=== PATIENT | female | born 1950 | race Caucasian/White ===

== ENCOUNTER → 2020-04-02 | Outpatient (CLI) | payer MEDICARE, OTHER ==
[2020-04-02 14:26] LABS: BASOPHILS ABSOLUTE AUTO 0.03 K/mm3 (0.00-0.23); BASOPHILS PERCENT AUTO 1 % (0-2); EOSINOPHILS PERCENT AUTO 2 % (0-6); Hematocrit 46.5 % (33.0-51.0); Hemoglobin 15.3 g/dL (11.5-16.0); IMMATURE GRAN ABSOLUTE AUTO 0.01 K/mm3 (0.00-0.10); IMMATURE GRAN PERCENT AUTO 0 % (0-1); LYMPHOCYTES ABSOLUTE AUTO 1.39 K/mm3 (0.84-5.20); LYMPHOCYTES PERCENT AUTO 28 % (21-46); MONOCYTES ABSOLUTE AUTO 0.32 K/mm3 (0.16-1.47); MONOCYTES PERCENT AUTO 7 % (4-13); Mean Corpuscular HGB 28.1 pg (26.0-34.0); Mean Corpuscular HGB Conc 32.9 g/dL (31.5-36.5); Mean Corpuscular Volume 85 fL (80-100); Mean Platelet Volume 10.6 fL (9.1-12.4); NEUTROPHILS ABSOLUTE AUTO 3.07 K/mm3 (1.96-9.15); NEUTROPHILS PERCENT AUTO 62 % (41-73); Platelet Count 191 K/mm3 (150-400); RDW Coefficient Variation 13.7 % (11.7-14.2); RDW Standard Deviation 42.4 fL (35.1-46.3); Red Blood Cell Count 5.45 M/mm3 (3.80-5.20); White Blood Cell Count 4.92 K/mm3 (4.00-11.30)
[2020-04-02 14:52] LABS: Alanine Aminotransfer (ALT/SGP 22 U/L (12-78); Albumin, Blood 4.1 g/dL (3.4-5.0); Albumin/Globulin Ratio 1.1 (0.8-1.8); Alk Phos 97 U/L (40-126); Anion Gap 10 mmol/L (6-16); Aspartate Aminotrans (AST/SGOT 18 U/L (12-37); Bilirubin, Total 0.5 mg/dL (0.1-1.0); Blood Urea Nitrogen 11 mg/dL (8-24); Bun/Creatinine Ratio 14.9 (12.0-20.0); CO2, Blood 27 mmol/L (21-32); Calcium, Blood 9.2 mg/dL (8.5-10.1); Chloride, Blood 104 mmol/L (98-108); Creatinine, Blood 0.74 mg/dL (0.40-1.00); Globulin, Blood 3.8 g/dL (2.2-4.0); Glomerular Filtration Rate >60 (60-); Glucose, Blood 113 mg/dL (70-99); Potassium, Blood 3.9 mmol/L (3.5-5.5); Sodium, Blood 141 mmol/L (136-145); Thyroid Stimulating Hormone 1.163 uIU/mL (0.360-4.800); Total Protein, Blood 7.9 g/dL (6.4-8.2)
== END ==
LOC: LAB SHORT 14:22 → LAB EV 14:22
PROVIDERS: Physician Assistant
DX: R60.0 Localized edema (principal); R53.83 Other fatigue
CPT/HCPCS: 80053; 83880; 84443; 85025; 85379

== ENCOUNTER → 2021-03-26 | Outpatient (CLI) | payer MEDICARE, OTHER ==
[~2021-03-26] MED LIST: Protonix40 MG PO
== END ==
LOC: LAB EV 15:58 → LAB SHORT 15:58
DX: R35.0 Frequency of micturition (principal)
CPT/HCPCS: 87077; 87086; 87186

== ENCOUNTER → 2021-04-03 | Outpatient (CLI) | payer MEDICARE, OTHER | END | disposition home or self-care (01) | LOC: LAB SHORT 15:33 → LAB EV 15:33 | DX: N39.0 Urinary tract infection, site not specified (principal) | CPT/HCPCS: 87086 ==

== ENCOUNTER 2021-04-13 15:38 | Emergency (ER) | payer MEDICARE, OTHER ==
[~2021-04-13] VITALS: Ht 165.1 cm; Wt 77.1 kg
[2021-04-13 16:18] LABS: BASOPHILS ABSOLUTE AUTO 0.04 K/mm3 (0.00-0.23); BASOPHILS PERCENT AUTO 0 % (0-2); EOSINOPHILS ABSOLUTE AUTO 0.19 K/mm3 (0.00-0.68); EOSINOPHILS PERCENT AUTO 2 % (0-6); Hemoglobin 15.3 g/dL (11.5-16.0); IMMATURE GRAN ABSOLUTE AUTO 0.04 K/mm3 (0.00-0.10); IMMATURE GRAN PERCENT AUTO 0 % (0-1); LYMPHOCYTES ABSOLUTE AUTO 0.96 K/mm3 (0.84-5.20); LYMPHOCYTES PERCENT AUTO 8 % (21-46); MONOCYTES ABSOLUTE AUTO 0.47 K/mm3 (0.16-1.47); MONOCYTES PERCENT AUTO 4 % (4-13); Mean Corpuscular HGB 28.1 pg (26.0-34.0); Mean Corpuscular HGB Conc 32.6 g/dL (31.5-36.5); Mean Corpuscular Volume 86 fL (80-100); Mean Platelet Volume 10.9 fL (9.1-12.4); NEUTROPHILS ABSOLUTE AUTO 9.82 K/mm3 (1.96-9.15); NEUTROPHILS PERCENT AUTO 85 % (41-73); Platelet Count 195 K/mm3 (150-400); RDW Coefficient Variation 13.2 % (11.7-14.2); RDW Standard Deviation 41.4 fL (35.1-46.3); Red Blood Cell Count 5.45 M/mm3 (3.80-5.20); White Blood Cell Count 11.52 K/mm3 (4.00-11.30)
[2021-04-13 16:53] LABS: Alanine Aminotransfer (ALT/SGP 26 U/L (12-78); Albumin, Blood 3.9 g/dL (3.4-5.0); Albumin/Globulin Ratio 1.1 (0.8-1.8); Alk Phos 98 U/L (50-136); Anion Gap 6 mmol/L (6-16); Aspartate Aminotrans (AST/SGOT 19 U/L (12-37); Bilirubin, Total 0.7 mg/dL (0.1-1.0); Blood Urea Nitrogen 11 mg/dL (8-24); Bun/Creatinine Ratio 15.4 (12.0-20.0); CO2, Blood 24 mmol/L (21-32); Calcium, Blood 9.3 mg/dL (8.5-10.1); Chloride, Blood 107 mmol/L (98-108); Creatinine, Blood 0.72 mg/dL (0.40-1.00); Globulin, Blood 3.6 g/dL (2.2-4.0); Glomerular Filtration Rate >60 (60-); Glucose, Blood 147 mg/dL (70-99); Potassium, Blood 3.8 mmol/L (3.5-5.5); Sodium, Blood 137 mmol/L (136-145); Total Protein, Blood 7.5 g/dL (6.4-8.2); Troponin I <0.015 ng/mL (0.000-0.040)
[2021-04-13] MEDS ORDERED: Protonix40 MG PO (19:21)
== END 2021-04-13 19:40 | disposition home or self-care (01) ==
LOC: ER 15:38
PROVIDERS: Physician Assistant
DX: K20.90 Esophagitis, unspecified without bleeding (principal); I10 Essential (primary) hypertension; Z88.2 Allergy status to sulfonamides; Z88.0 Allergy status to penicillin
CPT/HCPCS: 36415; 71046; 71275; 80053; 84484; 85025; 93005; 93010; 99284-25; Q9967

== ENCOUNTER 2021-06-10 05:57 | Inpatient (IN) | payer MEDICARE, OTHER ==
[~2021-06-10] VITALS: Ht 165.1 cm; Wt 77.1 kg
[2021-06-10 06:51] LABS: BASOPHILS ABSOLUTE AUTO 0.04 K/mm3 (0.00-0.23); BASOPHILS PERCENT AUTO 1 % (0-2); EOSINOPHILS ABSOLUTE AUTO 0.28 K/mm3 (0.00-0.68); EOSINOPHILS PERCENT AUTO 4 % (0-6); Hemoglobin 14.6 g/dL (11.5-16.0); IMMATURE GRAN ABSOLUTE AUTO 0.01 K/mm3 (0.00-0.10); IMMATURE GRAN PERCENT AUTO 0 % (0-1); LYMPHOCYTES ABSOLUTE AUTO 1.98 K/mm3 (0.84-5.20); LYMPHOCYTES PERCENT AUTO 27 % (21-46); MONOCYTES ABSOLUTE AUTO 0.41 K/mm3 (0.16-1.47); MONOCYTES PERCENT AUTO 6 % (4-13); Mean Corpuscular HGB 27.9 pg (26.0-34.0); Mean Corpuscular HGB Conc 32.4 g/dL (31.5-36.5); Mean Corpuscular Volume 86 fL (80-100); NEUTROPHILS ABSOLUTE AUTO 4.59 K/mm3 (1.96-9.15); NEUTROPHILS PERCENT AUTO 63 % (41-73); Platelet Count 180 K/mm3 (150-400); RDW Coefficient Variation 13.1 % (11.7-14.2); Red Blood Cell Count 5.24 M/mm3 (3.80-5.20); White Blood Cell Count 7.31 K/mm3 (4.00-11.30)
[2021-06-10 07:08] LABS: Alanine Aminotransfer (ALT/SGP 25 U/L (12-78); Albumin, Blood 3.7 g/dL (3.4-5.0); Albumin/Globulin Ratio 1.1 (0.8-1.8); Alk Phos 93 U/L (50-136); Anion Gap 8 mmol/L (6-16); Aspartate Aminotrans (AST/SGOT 19 U/L (12-37); Bilirubin, Total 0.6 mg/dL (0.1-1.0); Blood Urea Nitrogen 9 mg/dL (8-24); Bun/Creatinine Ratio 16.1 (12.0-20.0); CO2, Blood 23 mmol/L (21-32); Calcium, Blood 8.7 mg/dL (8.5-10.1); Chloride, Blood 109 mmol/L (98-108); Creatinine, Blood 0.56 mg/dL (0.40-1.00); Globulin, Blood 3.4 g/dL (2.2-4.0); Glomerular Filtration Rate >60 (60-); Glucose, Blood 180 mg/dL (70-99); Potassium, Blood 3.7 mmol/L (3.5-5.5); Sodium, Blood 140 mmol/L (136-145); Total Protein, Blood 7.1 g/dL (6.4-8.2)
[2021-06-10 08:58] LABS: SARS-Cov-2 (COVID-19) PCR, MMC NEGATIVE (NEGATIVE)
--- NOTE | 2021-06-10 19:07 | NUR ---
SHIFT SUMMARY NEW ADMIT TO UNIT FROM ER WITH RIGHT FEMUR FRACTURE. ALERT AND ORIENTED. RIGHT LEG BENT AT KNEE AND EXTERNALLY ROTATED. PAINFUL WITH MOVEMENT. PATIENT HAS BEEN RESTING IN BED ALL AFTERNOON AND DECLINES REPOSITIONING. DECLINES PAIN MEDS AT THIS TIME. NPO AFTER MIDNIGHT FOR PLANNED SURGICAL REPAIR TOMORROW 06/11/[address] MELGAR. IF FLUIDS RUNNING. COSTELLO IN PLACE. REPORT GIVEN TO NO EXPERIENCE RN.
--- NOTE | 2021-06-11 03:15 | NUR ---
SHIFT SUMMARY PT AOX4. ADMITTED FOR R FEMUR FX. RLE IS EXTERNALY ROTATED. PT REPORTS PAIN LEVEL OF 1-2/10 AT REST AND 10/10 WITH MOV'T. NO ACUTE CHANGES OVERNIGHT. NPO AFTER MIDNIGHT. COSTELLO CATH, OFF FLOOR, GRAVITY, PATENT AND INTACT WITH STAT LOCKED. URINE APPEARS TO BE DARK YELLOW. PT ON BEDREST. IV FLUIDS (NS) RUNNING AT 75ML/HR. PT DENIES NAUSEA AND VOMITING. SHE ALSO ADDRESS THAT SHE HAS VERY STRICT DIET/ VERY PARTICULAR IN FOOD. PT REFUSE ANY HOSPITAL FOOD/SNACKS. I OFFERED THIS LAST NIGHT BUT PT REFUSED. WILL ADDRESS THIS TO ONCOMING AM NURSE. CALL LIGHT WITHIN REACH.
--- NOTE | 2021-06-11 12:43 | NUR ---
PT WENT TO DAY SURGERY AT THIS TIME.
--- NOTE | 2021-06-11 12:56 | NUR ---
INTO [facility] FROM SURG FLOOR ROOM. History, Chart, Medications and Allergies reviewed before start of procedure.Patient confirms NPO status and agrees with scheduled surgery. Lungs clear T/O to Auscultation. Surgical site prepped with 2% Chlorhexidine cloth wipe.
--- NOTE | 2021-06-11 13:16 | NUR ---
Patient is lying in bed and alert. Patient tells me how scared and anxious she is about the upcoming surgery and about how she will handle any movement because of the intense pain. Patient talks at length about her Yarsani gayle, her and the activity that she is accustom to. I provide therapeutic listening, anxiety containment, pastoral international student counselor and pre-surgery prayer. Patient responds well and shows signs of increased peace. I will continue to remain available to patient and family.
--- NOTE | 2021-06-11 16:48 | NUR ---
06/11/21 1648 SHANAEVITOR MENDEZ ONE UNIT OF PRBC'S STARTED AT [address] VIVAR.
[2021-06-11 17:24] LABS: Hematocrit 35.8 % (33.0-51.0); Hemoglobin 11.1 g/dL (11.5-16.0)
--- NOTE | 2021-06-11 18:08 | NUR ---
SHIFT SUMMARY PT IS POD#0 FROM R GAMMA NAILING WITH DR. CERVANTES. PT REPORTS MILD BUT TOLERABLE PAIN POST OP. PT DENIES NAUSEA AND IS TOLERATING SMALL AMOUNTS OF PO. VSS. WILL CONTINUE TO MONITOR UNTIL REPORT TO GYPSY BEYER.
--- NOTE | 2021-06-12 06:14 | NUR ---
SHIFT SUMMARY POD1 R HIP NAILING WITH DR. CERVANTES. PT AOX4. VSS. BUT MILD HYPOTENSIVE THIS MORNING. PT IS ASYMPTOMATIC. R HIP WITH SOFT DRESSING/ ADHESIVE TAPE AND GAUZE WITH SCANT DRAINAGE, REMAIN UNCHANGED OVERNIGHT. PT DENIES DIZZINESS, NUMBNESS AND TINGLING SENSTATION. PT HAS FULL SENSATION ON BLE. ABLE TO LIFT LLE BUT VERY WEAK ON RLE. PEDAL PULSES ARE STRONG. CAP REFILL WNL. ICE ON R HIP. COSTELLO CATH STILL IN PLACED. VOIDING ADEQUATELY. ENC USE OF I/S AND FLUTTER VALVE. LUNGS ARE CLEAR BUT DIM. ENC DEEP BREATHING EXERCISE. PT REPORTS MINIMAL PAIN AT REST. ABX ADMINISTERED AND FLUIDS INFUSING. TOLERATING PO INTAKE, PT ON VERY STRICT DIET. CALL LIGHT WTIHIN BRYCE. WILL PROVIDE REPORT TO ONCOMING NURSE.
--- NOTE | 2021-06-12 18:53 | NUR ---
SHIFT SUMMARY PT IS POD#1 FROM R HIP REPAIR. PAIN MANAGED WITH PO PAIN MEDICATION. PT WORKED WITH THERAPY AND IS A 1 PERSON ASSIST WITH GAIT BELT AND WALKER. PT TOLERATING PO BUT HAS LIMITED DIET R/T SWALLOWING ISSUES. PT IS AWARE OF FOODS SHE HAS DIFFICULTY EATING AND PT'S HAS BROUGHT HER SOME FOODS. WILL MONITOR UNTIL REPORT TO NOC RN.
--- NOTE | 2021-06-13 04:14 | NUR ---
SHIFT SUMMARY POD2 R HIP NAILING WITH DR. CERVANTES. AOX4. VSS. PT REPORTS PAIN AND SORENESS ON R HIP/ RLE. PAIN MANAGED WITH ICE AND PO MEDICATIONS (TYLENOL AND PERCOCET). TOLERATING PO INTAKE DENIES NAUSEA AND VOMITING. FLUIDS INFUSING. PT DENIES NUMBNESS, TINGLING SENSATION AND DIZZINESS. AMBULATING WITH 1 MIN SBA, FWW AND GB. PLAN IS TO WORK WITH THERAPY TODAY, AND POSSIBLE DISCHARGE TO SNF (REHAB). CALL LIGHT WITHIN REACH. WILL PROVIDE REPORT TO ONCOMING NURSE.
[2021-06-13 06:25] LABS: SARS-Cov-2 (COVID-19) PCR, MMC NEGATIVE (NEGATIVE)
[2021-06-13 08:16] LABS: Hematocrit 24.3 % (33.0-51.0); Hemoglobin 7.8 g/dL (11.5-16.0)
[2021-06-13 17:18] LABS: Hematocrit 26.9 % (33.0-51.0); Hemoglobin 8.7 g/dL (11.5-16.0)
[2021-06-13 17:59] LABS: Percent Saturation 7.2 % (15.0-50.0)
--- NOTE | 2021-06-13 18:32 | NUR ---
SHIFT SUMMARY POD 2 NAILING R HIP. PT AA0X4, AMBULATING WELL TO BATHROOM. DRESSING IS CDI. PT DIDNT DISCHARGE TODAY R/T HGB THIS AM. REPEAT CHECK WAS 8.7 SO 1 UNIT PRBC HELD AT THIS TIME. PLAN IS TO RECHECK AT 0000 AT REASSESS. PT REPORTS FEELING WEAKER TODAY THAN YESTERDAY WITH SOME OCCASIONAL SWEATING. TOLERATING PO WELL.
[2021-06-13 22:48] LABS: Hematocrit 25.1 % (33.0-51.0); Hemoglobin 8.1 g/dL (11.5-16.0)
[2021-06-14 07:20] LABS: Hematocrit 23.3 % (33.0-51.0); Hemoglobin 7.4 g/dL (11.5-16.0)
--- NOTE | 2021-06-14 07:43 | NUR ---
PT A/OX4. BP SOFT BUT PT ASYMPTOMATIC. TMAX AT 101.2, TYLENOL GIVEN AND INCENTIVE SPIROMETER ENCOURAGED. HGB AT 8.1 AT SCHEDULED MIDNIGHT RECHECK. SMALL BRUISE NOTED ON PT'S INNER THIGH. DRESSING CDI. DENIES N/T. UP TO TOILET W/ FWW AND GAITBELT. USING CALL LIGHT TO MAKE NEEDS KNOWN.
--- NOTE | 2021-06-14 09:38 | NUR ---
NOTICED NEW BRUISE TO RIGHT INNER THIGH, SPREADS FROM KNEE TO GROIN. DARK PURPLE IN COLOR. MD AWARE. PLAN IS TO TRANSFUSE 1 UNIT OF BLOOD.
--- NOTE | 2021-06-14 10:12 | NUR ---
TRANSFUSION BEGAN AT THIS TIME. PT HAS LOW GRADE TEMP, WILL GIVE TYLENOL PER EMAR. BREATH SOUNDS CLEAR, PT RESTING IN CHAIR WITH FEET UP WATCHING VILLAR GIRLS. EDUCATED PT ON USING CALL LIGHT TO REPORT AND SIGNS OF TRANSFUSION REACTION, SHE HAS CALL LIGHT IN REACH.
--- NOTE | 2021-06-14 10:29 | NUR ---
PT TOLERATED FIRST 15 MINUTES OF INFUSION WELL, INCREASED RATE TO 100ML/HR. EDUCATED PATIENT ON INSPIROMETER AND DEEP BREATHING.
[2021-06-14 15:09] LABS: Hematocrit 28.7 % (33.0-51.0); Hemoglobin 9.4 g/dL (11.5-16.0)
--- NOTE | 2021-06-14 16:33 | NUR ---
SHIFT SUMMARY PT RECIEVED UNIT PRBC TODAY, TOLERATED WELL. UP AND AMBULATING WELL TODAY, REPORTS FEELING STRONGER. NEW BRUISING TO RIGHT INNER THIGH OUTLINED AND THIGH CIRCUMFRENCE MEASURED AT 68CM COMPARED TO LEFT THIGH AT 62. PT TOLERATING PO WELL AND REPORTS PAIN WELL MANAGED TODAY. PLAN IS TO CONTINUE WITH THERAPY AND RECHECK H&H IN THE MORNING.
[2021-06-14 20:25] LABS: Hematocrit 27.7 % (33.0-51.0)
--- NOTE | 2021-06-15 03:22 | NUR ---
PT A/OX4. VSS ON RA. PAIN MANAGED WELL W/ PERCOCET. SMALL AMT OF SHADOWING NOTED FROM INNER THIGH BRUISE AND OUTLINED. CIRCUMFERENCE AT 71CM, SLIGHT INCREASE FROM DAY SHIFT CIRCUMFERENCE OF 68CM. ICE PACK APPLIED, PT UP TO TOILET W/ FWW AND GAITBELT. PT DENIES FEELING WEAK. IVF INFUSING. SLEEPING B/W CARE. USING CALL LIGHT TO MAKE NEEDS KNOWN.
[2021-06-15 08:48] LABS: Hematocrit 28.8 % (33.0-51.0); Hemoglobin 9.2 g/dL (11.5-16.0)
--- NOTE | 2021-06-15 17:14 | NUR ---
SHIFT SUMMARY: VSS. NO ACUTE CHANGES, PT REMAINED A/O X 4, PLEASANT/COOPERATIVE. PATIENT COMPLETED PT/OT THIS SHIFT, HAS TOLERATED PO INTAKE, VOIDED, PASSING FLATUS. PT IS GLUTEN FREE AND HAS HER OWN SNACKS IN ROOM. OPERATIVE SITE R HIP WITH AQUACELL DRESSING C/D/I. BRUISING TO INNER THIS DEMARKATED WITH SHARPIE, SHOWING DIFFUSE LIGHTLY SHADOWING BRUISING OUTSIDE MARKED LINES. MEASUREMENT OF THIGH AT PREVIOUSLY DEMARKATED SPOT 70 CM, NO GROWTH FROM LAST AIR BRUSH DECORATOR; THIGH TISSUE REMAINS BASELINE COLOR/TEMP, SOFT, NO FIRMNESS. PT REPORTS PAIN CONTROLLED WHILE RELAXING, ELEVATED WHEN MOVING LIMB. PT PERFORMING THERAPY EXERCISES. ICE IN PLACE TO RIGHT THIGH.
[2021-06-15 20:07] LABS: Hematocrit 28.6 % (33.0-51.0); Hemoglobin 9.3 g/dL (11.5-16.0)
--- NOTE | 2021-06-16 04:10 | NUR ---
SHIFT SUMMARY PT WITH CONCERNS ABOUT SWELLING/REDNESS/BRUISING/PAIN TO RIGHT LEG/THIGH TONIGHT. RLE APPEARS TO LOOK THE SAME ASSESSMENT AT START OF SHIFT. DEMARCATION REMAINS THE SAME. ENCOURAGING ICE TO RLE. 1 PERCOCET FOR PAIN MANAGEMENT. UP WITH 1 ASSIST TO BRP USING FWW. AQUACEL DRESSING TO R HIP HAS SHADOWING ON IT, BUT HAS REMAINED THE SAME START OF SHIFT. AQUACEL DRESSING TO R THIGH REMAINS CDI. PLAN FOR PT TO D/C HOME WITH HOME HEALTH TODAY.
--- NOTE | 2021-06-16 11:45 | NUR ---
PT'S PROVIDED WITH HARD COPY SCRIPT FOR MEDICATIONS.
[2021-06-16] MEDS ORDERED: ACET325 PO (15:18)
[2021-06-16] MEDS ORDERED: XARELTO20 MG PO (15:22)
--- NOTE | 2021-06-16 16:40 | NUR ---
SHIFT SUMMARY PT IS POD#6 FROM R HIP REPAIR WITH DR. CERVANTES. PLAN FOR DISCHARGE THIS EVENING. PT WILL BE GOING HOME WITH HOME HEALTH. PT'S FAMILY IS ARRANGING EQUIPMENT FOR HOME AND PICKING UP PRESCRIPTIONS. AWAITING FAMILY ARRIVAL FOR DISCHARGE HOME. WILL MONITOR UNTIL DISCHARGE.
--- NOTE | 2021-06-16 17:50 | NUR ---
DISCHARGE PT PROVIDED WITH WRITTEN AND VERBAL DISCHARGE INSTRUCTIONS, SHE AND HER S/O REPORTED UNDERSTANDING. DRESSING SATURATED WITH SEROSANGUINOUS FLUID, BOTH PROXIMAL DRESSINGS CHANGED AND INCISIONS CLEANED WITH IODINE PER ORDER. THIRD AND MOST DISTAL DRESSING C/D/I AT THIS TIME, DRESSING WAS CHANGED THIS AM. DRESSING SUPPLIES SENT HOME WITH PT AND HER SPOUSE. PT EDUCATED TO FOLLOW UP WITH DR. CERVANTES FOR STAPLE REMOVAL IN 7-10 DAYS. PT ESCORTED OUT IN W/C. PAIN MANAGED AT TIME OF DISCHARGE.
== END 2021-06-16 17:30 | disposition home health service (06) | DRG 481 ==
LOC: ER 05:57 → SURS 08:00
PROVIDERS: Emergency Medicine; Orthopaedic Surgery; ADMIT Internal Medicine
PROC: 0QS606Z Reposition Right Upper Femur with Intramedullary Internal Fixation Device, Open Approach (ICD-10-PCS; principal; 2021-06-10)
PROC: 30230N1 Transfusion of Nonautologous Red Blood Cells into Peripheral Vein, Open Approach (ICD-10-PCS; 2021-06-14)
DX: S72.21XA Displaced subtrochanteric fracture of right femur, initial encounter for closed fracture (principal); D62 Acute posthemorrhagic anemia; Z20.822 Contact with and (suspected) exposure to COVID-19; I10 Essential (primary) hypertension; Z88.2 Allergy status to sulfonamides; Z88.0 Allergy status to penicillin; Z90.89 Acquired absence of other organs; W06.XXXA Fall from bed, initial encounter
CPT/HCPCS: 36415; 36430; 51702; 73552; 73700; 80053; 82607; 82728; 82746; 83540; 83550; 85014; 85018; 85025; 86850; 86900; 86901; 86923; 94760; 96374-59; 96375-59; 97110; 97116; 97162; 97166; 97530; 97535; 99285-25; A9270; C1713; C1769; J0690; J1100; J1170; J1885; J2250; J2270; J2370; J2405; J2704; J2710; J3010; J7030; J7120; P9016; U0004

== ENCOUNTER → 2024-09-29 | Outpatient (CLI) | payer MEDICARE, OTHER ==
[~2024-09-29] MED LIST changes: +ACET325 PO; +XARELTO20 MG PO
== END ==
LOC: LAB 16:05 → LAB SHORT 16:05
DX: R31.9 Hematuria, unspecified (principal)
CPT/HCPCS: 87086